=== PATIENT | female | born 2000 | race Caucasian/White ===

== ENCOUNTER 2021-02-01 20:02 | Emergency (ER) | payer BC ==
[~2021-02-01] VITALS: Ht 172.7 cm; Wt 70.3 kg
[2021-02-01 20:46] LABS: BASOPHILS % (AUTO) 0.5 % (0.0-2.0); EOSINOPHILS % (AUTO) 1.3 % (0.0-6.0); HEMATOCRIT 42 % (33-45); HEMOGLOBIN 14.3 g/dL (11.5-14.8); LYMPHOCYTES # (AUTO) 2.5 K/uL (0.8-4.8); LYMPHOCYTES % (AUTO) 29.3 % (20.0-44.0); MEAN CORPUSCULAR HGB CONC 34 g/dl (31.0-36.0); MEAN CORPUSCULAR VOLUME 94 fL (82-100); MONOCYTES # (AUTO) 0.7 K/uL (0.1-1.30); MONOCYTES % (AUTO) 8.3 % (2.0-12.0); NEUTROPHILS # (AUTO) 5.3 K/uL (1.8-8.9); NEUTROPHILS % (AUTO) 60.6 % (43.0-81.0); PLATELET COUNT (AUTO) 286 K/uL (150-450); RED BLOOD CELL COUNT(AUTO) 4.48 MIL/uL (4.0-5.2); WHITE BLOOD COUNT (AUTO) 8.7 K/uL (4.3-11.0)
[2021-02-01 20:48] LABS: CALCIUM, SERUM 8.7 mg/dL (8.5-10.1); CREATININE 0.7 mg/dL (0.6-1.3); POTASSIUM 3.6 mmol/L (3.5-5.1)
[2021-02-01 20:54] LABS: ALBUMIN 4.3 g/dL (3.4-5.0); BILIRUBIN,DIRECT 0.1 mg/dL (0.0-0.2); BILIRUBIN,TOTAL 0.4 mg/dL (0.2-1.0); TOTAL PROTEIN, SERUM 7.7 g/dL (6.4-8.2)
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
[2021-02-01] MEDS ORDERED: ONDA4TAB5 PO (22:40)
[2021-02-01] MEDS ORDERED: HYDR-4209 PO (22:40)
--- NOTE | 2021-02-01 22:40 | NUR ---
DR ESPINOSA PAGED PER DR PATEL.
--- NOTE | 2021-02-01 22:49 | NUR ---
emt at bedside
--- NOTE | 2021-02-01 22:49 | NUR ---
Patient discharged to home in stable condition. Written and verbal after care instructions given. Patient verbalizes understanding of instruction. Pt ambulatory with a steady gait
--- NOTE | 2021-02-01 22:53 | NUR ---
Leonie banerjee in [facility] - 02/01/21 at 2259 by MATTEO emt at bedside
[2021-02-02 00:30] VITALS: BP 117/68
== END 2021-02-01 23:00 | disposition home or self-care (01) ==
LOC: ER 20:06
DX: S52.572A Other intraarticular fracture of lower end of left radius, initial encounter for closed fracture (principal); S80.811A Abrasion, right lower leg, initial encounter; Z79.899 Other long term (current) drug therapy; V49.49XA Driver injured in collision with other motor vehicles in traffic accident, initial encounter; Y93.89 Activity, other specified; Y92.488 Other paved roadways as the place of occurrence of the external cause; Y99.8 Other external cause status
CPT/HCPCS: 36415; 71045-TC; 73110; 80048-TC; 80076-TC; 84703-TC; 85025-TC

== ENCOUNTER 2022-08-01 12:30 | Emergency (ER) | payer BC ==
[~2022-08-01] VITALS: Ht 170.2 cm; Wt 61.2 kg
[~2022-08-01 12:30] MED LIST: HYDR-4209 PO; ONDA4TAB5 PO
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
--- NOTE | 2022-08-01 12:56 | NUR ---
AT BEDSIDE FOR EVAL
[2022-08-01] MEDS ORDERED: CYCL5TAB PO (13:01)
[2022-08-01] MEDS ORDERED: IBUP-1955 PO (13:01)
--- NOTE | 2022-08-01 13:15 | NUR ---
[facility] [id number] AT BEDSIDE.
--- NOTE | 2022-08-01 13:55 | NUR ---
Patient discharged to home in stable condition. Written and verbal after care instructions given. Patient verbalizes understanding of instruction.
[2022-08-01 14:01] VITALS: BP 110/65
== END 2022-08-01 13:55 | disposition home or self-care (01) ==
LOC: ER 12:32
DX: T22.412A Corrosion of unspecified degree of left forearm, initial encounter (principal); T22.411A Corrosion of unspecified degree of right forearm, initial encounter; V43.52XA Car driver injured in collision with other type car in traffic accident, initial encounter; Y93.89 Activity, other specified; Y92.89 Other specified places as the place of occurrence of the external cause; Y99.8 Other external cause status
CPT/HCPCS: 99283; A6403